=== PATIENT | male | born 1980 | race Hispanic/Latino ===

== ENCOUNTER 2018-01-22 18:50 | Inpatient (IN) | payer OTHER ==
[~2018-01-22] VITALS: Ht 167.6 cm; Wt 98.8 kg
[2018-01-22] MEDS ORDERED: ONDANSETRON HCL 4 MG/2 ML VIAL ONE (19:48)
[2018-01-22] MEDS ORDERED: MORPHINE SULFATE 4 MG/1ML SYG ONE (19:49)
[2018-01-22 20:17] LABS: BASOPHILS % (AUTO) 0.1 % (0.0-5.0); HEMATOCRIT 42.8 % (42-54); LYMPHOCYTES % (AUTO) 5.8 % (21.0-51.0); MEAN CORPUSCULAR HEMOGLOBIN 29.7 pg (27.0-33.0); MEAN CORPUSCULAR HGB CONC 34.2 g/dL (32.0-36.0); MEAN CORPUSCULAR VOLUME 86.7 fL (79-99); MONOCYTES % (AUTO) 5.9 % (3.0-13.0); NEUTROPHILS % (AUTO) 88.2 % (40.0-77.0); PLATELET COUNT (AUTO) 258 K/uL (130-400); RED BLOOD CELL COUNT(AUTO) 4.94 MIL/uL (4.50-6.20); RED CELL DISTRIBUTION WIDTH 13.4 % (11.0-15.5); WHITE BLOOD COUNT (AUTO) 22.3 K/uL (4.8-10.8)
[2018-01-22 20:22] LABS: CREATININE 1.1 mg/dL (0.5-1.5); POTASSIUM 4.1 mmol/L (3.5-5.1)
[2018-01-22 20:26] LABS: ALBUMIN 4.2 g/dL (3.5-5.0); BILIRUBIN,TOTAL 0.7 mg/dL (0.2-1.0); TOTAL PROTEIN, SERUM 8.3 g/dL (6.0-8.3)
[2018-01-22] MEDS ORDERED: HYDROMORPHONE HCL 2 MG/ML VIAL ONE (20:55)
[2018-01-22] MEDS ORDERED: CEFTAZIDIME PENTAHYDRATE 1 GM/VIAL IVP SCH (21:00)
[2018-01-22 21:35] VITALS: BP 126/77
[2018-01-22] MEDS ORDERED: ONDANSETRON HCL 4 MG/2 ML VIAL IVP PRN (22:30)
[2018-01-22 23:15] VITALS: BP 126/72
[2018-01-22] MEDS: LACTATED RINGERS 1000ML 1,000 ML IV SCH (23:25)
[2018-01-22] MEDS: METRONIDAZOLE 500MG/100ML BAG 100 ML IVPB SCH (23:25)
[2018-01-23 03:25] VITALS: BP 151/66
[2018-01-23] MEDS ORDERED: MEPERIDINE HCL/PF 25 MG/0.5 ML AMPUL ONE ×5 (04:44→20:14)
[2018-01-23] MEDS: CEFTAZIDIME PENTAHYDRATE 1 GM/VIAL IVP SCH ×3 (04:48→20:21)
[2018-01-23] MEDS: METRONIDAZOLE 500MG/100ML BAG 100 ML IVPB SCH ×4 (04:48→22:05)
[2018-01-23] MEDS: MEPERIDINE-PF 25 MG/ML SYG IV PRN ×3 (04:52→20:23)
[2018-01-23] MEDS ORDERED: CEFTAZIDIME 1GM+NS 50ML 50 ML IV SCH (05:00)
[2018-01-23 07:30] VITALS: BP 110/62
[2018-01-23 11:00] VITALS: BP 120/66
[2018-01-23] MEDS: LACTATED RINGERS 1000ML 1,000 ML IV SCH ×3 (12:08→22:05)
[2018-01-23 16:00] VITALS: BP 119/70
[2018-01-23 20:05] VITALS: BP 124/75
[2018-01-23 23:40] VITALS: BP 108/61
[2018-01-24] MEDS: HYDROMORPHONE HCL 0.5 MG/0.5 ML ML IVP PRN ×4 (01:35→17:03)
[2018-01-24 04:21] VITALS: BP 112/64
[2018-01-24] MEDS: CEFTAZIDIME PENTAHYDRATE 1 GM/VIAL IVP SCH ×3 (05:30→20:44)
[2018-01-24] MEDS: METRONIDAZOLE 500MG/100ML BAG 100 ML IVPB SCH ×4 (05:31→23:13)
[2018-01-24 08:00] VITALS: BP 117/67
[2018-01-24] MEDS: LACTATED RINGERS 1000ML 1,000 ML IV SCH ×2 (09:40→20:45)
[2018-01-24 11:00] VITALS: BP_SYST 120; BP_SYST 128; BP_DIAS 67; BP_DIAS 69
[2018-01-24 16:00] VITALS: BP 125/73
[2018-01-24 20:00] VITALS: BP 122/73
[2018-01-24] MEDS: MORPHINE SULFATE 2 MG/ML 1ML SYG IVP PRN ×2 (20:46→23:14)
[2018-01-25] VITALS: BP 131/75
[2018-01-25] MEDS: MORPHINE SULFATE 2 MG/ML 1ML SYG IVP PRN ×8 (03:01→22:42)
[2018-01-25 04:00] VITALS: BP 111/68
[2018-01-25] MEDS: LACTATED RINGERS 1000ML 1,000 ML IV SCH ×2 (07:07→14:43)
[2018-01-25] MEDS: METRONIDAZOLE 500MG/100ML BAG 100 ML IVPB SCH ×3 (07:07→17:36)
[2018-01-25] MEDS: CEFTAZIDIME PENTAHYDRATE 1 GM/VIAL IVP SCH ×3 (07:08→20:09)
[2018-01-25 08:00] VITALS: BP 127/75
[2018-01-25 11:00] VITALS: BP 121/68
[2018-01-25 16:00] VITALS: BP 127/78
[2018-01-25 20:00] VITALS: BP 119/78
[2018-01-25 21:10] LABS: MEAN CORPUSCULAR HEMOGLOBIN 30.1 pg (27.0-33.0); MEAN CORPUSCULAR HGB CONC 34.9 g/dL (32.0-36.0); MEAN CORPUSCULAR VOLUME 86.1 fL (79-99); NUCLEATED RED BLOOD CELLS 0.1 % (0.0-0.19); PLATELET COUNT (AUTO) 253 K/uL (130-400); RED BLOOD CELL COUNT(AUTO) 4.65 MIL/uL (4.50-6.20); RED CELL DISTRIBUTION WIDTH 13.1 % (11.0-15.5); WHITE BLOOD COUNT (AUTO) 11.3 K/uL (4.8-10.8)
[2018-01-26] VITALS: BP 129/73
[2018-01-26] MEDS: METRONIDAZOLE 500MG/100ML BAG 100 ML IVPB SCH ×5 (00:01→22:17)
[2018-01-26] MEDS: LACTATED RINGERS 1000ML 1,000 ML IV SCH ×3 (00:07→18:23)
[2018-01-26] MEDS: MORPHINE SULFATE 2 MG/ML 1ML SYG IVP PRN ×4 (00:57→11:01)
[2018-01-26 04:00] VITALS: BP 126/79
[2018-01-26] MEDS: CEFTAZIDIME PENTAHYDRATE 1 GM/VIAL IVP SCH ×3 (05:00→22:17)
[2018-01-26 08:00] VITALS: BP 118/70
[2018-01-26 12:00] VITALS: BP 130/46
[2018-01-26] MEDS ORDERED: PHARMACY COMMUNICATION MISC SCH (13:15)
[2018-01-26] MEDS: CALDOLOR 800MG+NS 250ML 250 ML IV SCH ×2 (14:27→22:17)
[2018-01-26 16:00] VITALS: BP 124/67
[2018-01-26] MEDS ORDERED: PANTOPRAZOLE 40 MG/VIAL IVP SCH (17:00)
[2018-01-26 20:00] VITALS: BP 115/68
[2018-01-26] MEDS ORDERED: MEPERIDINE-PF 25 MG/ML SYG IVP PRN (20:45)
[2018-01-26] MEDS ORDERED: FAMOTIDINE/PF 20 MG/2 ML VIAL IV SCH (21:00)
[2018-01-26] MEDS: PANTOPRAZOLE 40 MG/VIAL IVP SCH (22:16)
[2018-01-27] VITALS: BP 139/80
[2018-01-27 04:00] VITALS: BP 142/79
[2018-01-27] MEDS: CEFTAZIDIME PENTAHYDRATE 1 GM/VIAL IVP SCH ×2 (05:09→13:31)
[2018-01-27] MEDS: LACTATED RINGERS 1000ML 1,000 ML IV SCH ×2 (05:09→13:45)
[2018-01-27] MEDS: CALDOLOR 800MG+NS 250ML 250 ML IV SCH (05:09)
[2018-01-27] MEDS: METRONIDAZOLE 500MG/100ML BAG 100 ML IVPB SCH ×3 (05:09→18:05)
[2018-01-27 08:00] VITALS: BP 141/84
[2018-01-27] MEDS: PANTOPRAZOLE 40 MG/VIAL IVP SCH (09:50)
[2018-01-27 11:00] VITALS: BP 119/78
[2018-01-27 16:00] VITALS: BP 114/72
[2018-03-10] MEDS ORDERED: LINA145C PO (09:05)
== END 2018-01-27 20:05 | disposition home or self-care (01) | DRG 392 ==
LOC: EDH 18:50 → EDHIP 20:45 → 3AH 21:25
PROVIDERS: ADMIT Surgery; ATTEND Surgery
DX: K57.92 Diverticulitis of intestine, part unspecified, without perforation or abscess without bleeding (principal); M65.4 Radial styloid tenosynovitis [de Quervain]; M67.40 Ganglion, unspecified site; M65.9 Synovitis and tenosynovitis, unspecified
CPT/HCPCS: 36415; 73100; 74176; 80053; 85025; 85027; A4218; C9113; J0713; J1170; J1741; J2175; J2270; J2405; J3490; J7120

== ENCOUNTER 2018-03-11 05:54 | Day surgery (SDC) | payer OTHER ==
[~2018-03-11] VITALS: Ht 167.6 cm; Wt 96.1 kg
[~2018-03-11 05:54] MED LIST: LINA145C PO
[2018-03-11 06:16] VITALS: BP 118/70
[2018-03-11] MEDS ORDERED: SODIUM CHLORIDE 0.9% 1000ML 1,000 ML IV ONE ×2 (06:28→06:30)
[2018-03-11] MEDS ORDERED: GLYCOPYRROLATE 0.2 MG/ML 5 ML VIAL ONE (07:08)
[2018-03-11] MEDS ORDERED: PHENYLEPHRINE HCL 10 MG/ML 1ML VIAL IV ONE (07:08)
[2018-03-11] MEDS ORDERED: SUCCINYLCHOLINE CHLORIDE 20 MG/ML 10 ML VIAL ONE (07:08)
[2018-03-11] MEDS ORDERED: LIDOCAINE HCL 2% 20ML ONE (07:08)
[2018-03-11] MEDS ORDERED: PROPOFOL 1000 MG/100 ML 100 ML IV ONE (07:08)
== END 2018-03-11 07:57 | disposition home or self-care (01) ==
LOC: DAH 05:54 → ENDO 05:54
PROVIDERS: ATTEND Internal Medicine
DX: K63.5 Polyp of colon (principal); K57.30 Diverticulosis of large intestine without perforation or abscess without bleeding; K57.32 Diverticulitis of large intestine without perforation or abscess without bleeding; Z98.890 Other specified postprocedural states; Z79.899 Other long term (current) drug therapy
CPT/HCPCS: 45380; 88305; A4606; J0330; J2370; J2704; J3490 ×2; J7030 ×2

== ENCOUNTER → 2019-09-08 | Outpatient (CLI) | payer OTHER | END | disposition home or self-care (01) | LOC: RAH 09:18 | PROVIDERS: ATTEND Internal Medicine Gastroenterology | DX: K82.4 Cholesterolosis of gallbladder (principal) | CPT/HCPCS: 76700 ==

== ENCOUNTER → 2020-05-09 | Outpatient (CLI) | payer OTHER | END | disposition home or self-care (01) | LOC: RAH 08:02 | PROVIDERS: ATTEND Orthopaedic Surgery | DX: S83.511A Sprain of anterior cruciate ligament of right knee, initial encounter (principal); M17.11 Unilateral primary osteoarthritis, right knee; X58.XXXA Exposure to other specified factors, initial encounter; Y93.89 Activity, other specified; Y92.89 Other specified places as the place of occurrence of the external cause; Y99.8 Other external cause status | CPT/HCPCS: 73721 ==

== ENCOUNTER → 2022-05-27 | Outpatient (CLI) | payer OTHER ==
[~2022-05-27] MED LIST changes: +ALLO100T PO; +IOHEXOL 350 MG/ML 100ML INFUS..BTL IV ONE; -LINA145C PO
== END | disposition home or self-care (01) ==
LOC: RAH 09:30
PROVIDERS: ATTEND Internal Medicine Infectious Disease
DX: K57.92 Diverticulitis of intestine, part unspecified, without perforation or abscess without bleeding (principal); M86.8X8 Other osteomyelitis, other site; S36.593A Other injury of sigmoid colon, initial encounter; X58.XXXA Exposure to other specified factors, initial encounter; Y93.89 Activity, other specified; Y92.89 Other specified places as the place of occurrence of the external cause; Y99.8 Other external cause status; M89.38 Hypertrophy of bone, other site
CPT/HCPCS: 74177; Q9967

== ENCOUNTER 2022-06-13 18:47 | Inpatient (IN) | payer OTHER ==
[~2022-06-13] VITALS: Ht 167.6 cm; Wt 90.0 kg
[~2022-06-13 18:47] MED LIST changes: -IOHEXOL 350 MG/ML 100ML INFUS..BTL IV ONE
[2022-06-13] MEDS ORDERED: MORPHINE 4 MG SYG ONE (19:13)
[2022-06-13] MEDS ORDERED: ONDANSETRON 4MG INJ ONE (19:13)
[2022-06-13 19:16] LABS: BASOPHILS % (AUTO) 0.2 % (0.0-5.0); EOSINOPHILS % (AUTO) 0.1 % (0.0-8.0); HEMATOCRIT 46.6 % (42-54); LYMPHOCYTES % (AUTO) 6.5 % (21.0-51.0); MEAN CORPUSCULAR HGB CONC 33.5 g/dL (32.0-36.0); MEAN CORPUSCULAR VOLUME 83.7 fL (79-99); MONOCYTES % (AUTO) 6.2 % (3.0-13.0); NEUTROPHILS % (AUTO) 86.4 % (40.0-77.0); PLATELET COUNT (AUTO) 321 K/uL (130-400); RED BLOOD CELL COUNT(AUTO) 5.57 MIL/uL (4.50-6.20); RED CELL DISTRIBUTION WIDTH 13.7 % (11.0-15.5); WHITE BLOOD COUNT (AUTO) 23.4 K/uL (4.8-10.8)
[2022-06-13] MEDS ORDERED: METRONIDAZOLE 500MG/100ML BAG 100 ML IVPB SCH (19:30)
[2022-06-13] MEDS ORDERED: ONDANSETRON 4MG INJ IV ONE (19:30)
[2022-06-13] MEDS ORDERED: MORPHINE 4 MG SYG IVP ONE (19:30)
[2022-06-13] MEDS ORDERED: ZOSYN 3.375GM +NS 50ML IV SCH (19:30)
[2022-06-13 19:43] LABS: ALANINE AMINOTRANSFERASE 53 U/L (12-78); ALBUMIN 3.6 g/dL (3.5-5.0); ASPARTATE AMINOTRANSFERASE 21 U/L (10-37); CARBON DIOXIDE 27 mmol/L (21-32); CHLORIDE 97 mmol/L (101-111); CREATININE 1.3 mg/dL (0.5-1.5); GLOMERULAR FILTR. RATE CALC 64 mL/min (>60); GLUCOSE,RANDOM 133 mg/dL (70-105); LIPASE 237 U/L (114-286); POTASSIUM 4.6 mmol/L (3.5-5.1); SODIUM SERUM 135 mmol/L (136-145); TOTAL PROTEIN, SERUM 8.9 g/dL (6.0-8.3); UREA NITROGEN, BLOOD 15 mg/dL (7-18)
[2022-06-13] MEDS ORDERED: IOHEXOL 350 MG/ML 100ML INFUS..BTL IV ONE (19:53)
[2022-06-13 20:06] LABS: APPEARANCE,URINE CLOUDY (CLEAR); BILIRUBIN,URINE MODERATE (NEGATIVE); COLOR,URINE ORANGE (YELLOW); GLUCOSE, URINE (UA) NEGATIVE (NEGATIVE); KETONES,URINE 15 mg/dL (NEGATIVE); LEUKOCYTE ESTERASE ,URINE NEGATIVE (NEGATIVE); NITRATE,URINE POSITIVE (NEGATIVE); OCCULT BLOOD,URINE MODERATE (NEGATIVE); PROTEIN,URINE 100 mg/dL (NEGATIVE)
[2022-06-13 20:24] LABS: BACTERIA,URINE Few /HPF (None Seen); MUCUS,URINE Moderate LPF (None Seen); SQUAMOUS EPITHELIAL CELL,UR Few /HPF (0-2)
[2022-06-13 22:10] VITALS: BP 110/71
[2022-06-13 23:21] VITALS: BP 111/69
[2022-06-13] MEDS ORDERED: ACETAMINOPHEN 325 MG TAB PO PRN ×2 (23:30)
[2022-06-13] MEDS ORDERED: 0.9%NACL 1000ML 1,000 ML IV SCH (23:30)
[2022-06-13] MEDS: ONDANSETRON 4MG INJ IV PRN (23:49)
[2022-06-13] MEDS: MORPHINE 2 MG SYG IV PRN (23:50)
[2022-06-14] MEDS: HYDROMORPHONE 1 MG INJ IV PRN ×3 (03:08→20:47)
[2022-06-14 03:38] VITALS: BP 103/56
[2022-06-14 04:50] LABS: ALANINE AMINOTRANSFERASE 35 U/L (12-78); ALBUMIN 2.7 g/dL (3.5-5.0); ASPARTATE AMINOTRANSFERASE 6 U/L (10-37); CARBON DIOXIDE 27 mmol/L (21-32); CHLORIDE 101 mmol/L (101-111); CREATININE 1.2 mg/dL (0.5-1.5); GLOMERULAR FILTR. RATE CALC 70 mL/min (>60); GLUCOSE,RANDOM 117 mg/dL (70-105); POTASSIUM 4.5 mmol/L (3.5-5.1); SODIUM SERUM 135 mmol/L (136-145); TOTAL PROTEIN, SERUM 7.1 g/dL (6.0-8.3); UREA NITROGEN, BLOOD 11 mg/dL (7-18)
[2022-06-14] MEDS ORDERED: ZOSYN 3.375GM+NS 50ML 50 ML IV SCH (05:00)
[2022-06-14 06:15] LABS: BASOPHILS % (AUTO) 0.2 % (0.0-5.0); EOSINOPHILS % (AUTO) 0.1 % (0.0-8.0); HEMATOCRIT 36.9 % (42-54); MEAN CORPUSCULAR HEMOGLOBIN 29.3 pg (27.0-33.0); MEAN CORPUSCULAR HGB CONC 34.4 g/dL (32.0-36.0); MONOCYTES % (AUTO) 7.8 % (3.0-13.0); NEUTROPHILS % (AUTO) 83.3 % (40.0-77.0); PLATELET COUNT (AUTO) 272 K/uL (130-400); RED BLOOD CELL COUNT(AUTO) 4.34 MIL/uL (4.50-6.20); WHITE BLOOD COUNT (AUTO) 20.3 K/uL (4.8-10.8)
[2022-06-14] MEDS: MORPHINE 2 MG SYG IV PRN ×2 (06:32→15:51)
[2022-06-14 07:32] VITALS: BP 103/58
[2022-06-14 07:46] LABS: ERYTHROCYTE SEDIMENTATION RATE 72 MM/HR (0-15)
[2022-06-14] MEDS: FAMOTIDINE 20MG VIAL IV SCH ×2 (08:26→20:46)
[2022-06-14] MEDS ORDERED: METRONIDAZOLE 500 MG TABLET PO SCH (09:00)
[2022-06-14] MEDS ORDERED: VANCOMYCIN PROTOCOL PER PHARMACY IV SCH (10:00)
[2022-06-14] MEDS: LACTATED RINGERS 1000ML 1,000 ML IV SCH ×2 (10:52→22:40)
[2022-06-14] MEDS: MEROPENEM 1 GM VIAL IVP SCH ×2 (10:52→17:00)
[2022-06-14] MEDS ORDERED: VANCOMYCIN 1.5 GM/250 ML BAG 250 ML IV SCH (11:00)
[2022-06-14 11:13] VITALS: BP 108/67
[2022-06-14] MEDS ORDERED: FLUCONAZOLE 200 MG/NS 100 ML 100 ML IV SCH (13:00)
[2022-06-14] MEDS ORDERED: METRONIDAZOLE 500MG/100ML BAG 100 ML IVPB SCH (14:00)
[2022-06-14 15:16] VITALS: BP 105/65
[2022-06-14 20:12] VITALS: BP 117/69
[2022-06-14] MEDS: VANCOMYCIN 1G/250ML KIT 250 ML IV SCH (20:46)
[2022-06-14 23:46] VITALS: BP 115/67
[2022-06-15] MEDS: MEROPENEM 1 GM VIAL IVP SCH ×3 (01:08→18:18)
[2022-06-15] MEDS: MORPHINE 2 MG SYG IV PRN ×2 (01:09→16:16)
[2022-06-15 03:28] VITALS: BP 118/64
[2022-06-15 04:47] LABS: BASOPHILS % (AUTO) 0.1 % (0.0-5.0); EOSINOPHILS % (AUTO) 1.6 % (0.0-8.0); HEMATOCRIT 33.2 % (42-54); LYMPHOCYTES % (AUTO) 11.1 % (21.0-51.0); MEAN CORPUSCULAR HEMOGLOBIN 28.2 pg (27.0-33.0); MEAN CORPUSCULAR HGB CONC 33.7 g/dL (32.0-36.0); MEAN CORPUSCULAR VOLUME 83.6 fL (79-99); MONOCYTES % (AUTO) 8.1 % (3.0-13.0); NEUTROPHILS % (AUTO) 78.6 % (40.0-77.0); PLATELET COUNT (AUTO) 267 K/uL (130-400); RED BLOOD CELL COUNT(AUTO) 3.97 MIL/uL (4.50-6.20); RED CELL DISTRIBUTION WIDTH 13.8 % (11.0-15.5)
[2022-06-15] MEDS: HYDROMORPHONE 1 MG INJ IV PRN ×3 (04:47→20:44)
[2022-06-15 04:59] LABS: CREATININE 0.9 mg/dL (0.5-1.5); MAGNESIUM 1.7 mg/dL (1.80-2.40); POTASSIUM 3.8 mmol/L (3.5-5.1)
[2022-06-15 05:01] LABS: INR 1.1 (0.85-1.15); PROTHROMBIN TIME 11.9 SEC (9.6-11.6)
[2022-06-15 05:02] LABS: PARTIAL THROMBOPLASTIN TIME 36.2 SEC (26.3-35.5)
[2022-06-15 08:00] VITALS: BP 112/65
[2022-06-15] MEDS: FAMOTIDINE 20MG VIAL IV SCH ×2 (08:58→20:43)
[2022-06-15] MEDS: FLUCONAZOLE 200 MG/NS 100 ML 100 ML IV SCH (08:58)
[2022-06-15] MEDS: VANCOMYCIN 1G/250ML KIT 250 ML IV SCH ×2 (09:49→20:43)
[2022-06-15 12:00] VITALS: BP 122/74
[2022-06-15 16:00] VITALS: BP 117/69
[2022-06-15 19:12] VITALS: BP 115/70
[2022-06-15] MEDS: ONDANSETRON 4MG INJ IV PRN (20:43)
[2022-06-15] MEDS: LACTATED RINGERS 1000ML 1,000 ML IV SCH (22:32)
[2022-06-16 00:12] VITALS: BP 119/67
[2022-06-16] MEDS: MEROPENEM 1 GM VIAL IVP SCH ×3 (01:03→17:10)
[2022-06-16] MEDS: MORPHINE 2 MG SYG IV PRN ×2 (01:09→05:50)
[2022-06-16 01:44] VITALS: BP 129/74
[2022-06-16 03:21] VITALS: BP 115/67
[2022-06-16 06:51] LABS: BASOPHILS % (AUTO) 0.1 % (0.0-5.0); EOSINOPHILS % (AUTO) 1.2 % (0.0-8.0); HEMATOCRIT 33.4 % (42-54); LYMPHOCYTES % (AUTO) 9.9 % (21.0-51.0); MEAN CORPUSCULAR HEMOGLOBIN 28.1 pg (27.0-33.0); MEAN CORPUSCULAR HGB CONC 33.8 g/dL (32.0-36.0); MEAN CORPUSCULAR VOLUME 83.1 fL (79-99); MONOCYTES % (AUTO) 7.2 % (3.0-13.0); NEUTROPHILS % (AUTO) 81.2 % (40.0-77.0); PLATELET COUNT (AUTO) 293 K/uL (130-400); RED BLOOD CELL COUNT(AUTO) 4.02 MIL/uL (4.50-6.20); RED CELL DISTRIBUTION WIDTH 13.4 % (11.0-15.5); WHITE BLOOD COUNT (AUTO) 10.9 K/uL (4.8-10.8)
[2022-06-16 07:04] LABS: CREATININE 0.7 mg/dL (0.5-1.5); POTASSIUM 3.6 mmol/L (3.5-5.1)
[2022-06-16 08:22] VITALS: BP 116/69
[2022-06-16] MEDS: FAMOTIDINE 20MG VIAL IV SCH ×2 (09:49→21:00)
[2022-06-16] MEDS: FLUCONAZOLE 200 MG/NS 100 ML 100 ML IV SCH (09:49)
[2022-06-16] MEDS: VANCOMYCIN 1G/250ML KIT 250 ML IV SCH ×2 (09:49→21:00)
[2022-06-16] MEDS: LACTATED RINGERS 1000ML 1,000 ML IV SCH ×3 (09:49→23:00)
[2022-06-16] MEDS: HYDROMORPHONE 1 MG INJ IV PRN ×2 (09:50→14:39)
[2022-06-16 12:00] VITALS: BP 115/80
[2022-06-16 16:00] VITALS: BP 120/78
[2022-06-16] MEDS ORDERED: POTASSIUM CHLORIDE 20MEQ/100ML 100 ML IV PRN (16:00)
[2022-06-16] MEDS ORDERED: PROPOFOL 10 MG/ML 20ML VIAL IV ONE (19:30)
[2022-06-16] MEDS ORDERED: MIDAZOLAM HCL 1 MG/ML 2ML VIAL ONE (19:30)
[2022-06-16] MEDS ORDERED: LIDOCAINE PF 100MG/5ML (2%) SYRINGE 5ML ONE (19:30)
[2022-06-16] MEDS ORDERED: ROCURONIUM 10MG/1ML SYR 10 MG/ML ML ONE ×3 (19:30→22:27)
[2022-06-16] MEDS ORDERED: FENTANYL CITRATE PF 50 MCG/1 ML 5ML AMP IV ONE ×2 (19:32→21:36)
[2022-06-16] MEDS ORDERED: ONDANSETRON 4MG INJ ONE (19:33)
[2022-06-16] MEDS ORDERED: GLYCOPYRROLATE 1 MG/5 ML SYRINGE ONE ×2 (21:16→23:48)
[2022-06-16] MEDS ORDERED: MEPERIDINE-PF 25 MG/ML SYG ONE (21:30)
[2022-06-16] MEDS ORDERED: DEXAMETHASONE SOD PHOSPHATE 4 MG/ML 1ML VIAL ONE (21:36)
[2022-06-16] MEDS ORDERED: OXYMETAZOLINE HCL SPRAY 15 ML BOTTLE ONE (22:00)
[2022-06-16] MEDS ORDERED: LIDOCAINE HCL 2% JELLY 5 ML ONE (22:06)
[2022-06-16] MEDS ORDERED: NEOSTIGMINE 5MG/5ML SYR IV ONE (23:48)
[2022-06-16] MEDS ORDERED: METOCLOPRAMIDE 10 MG/2 ML VIAL ONE (23:49)
[2022-06-16] MEDS ORDERED: KETOROLAC 30MG VIAL (30MG/ML) ONE (23:52)
[2022-06-16] MEDS ORDERED: FENTANYL CITRATE PF 50 MCG/1 ML 2ML VIAL ONE (23:54)
[2022-06-17] VITALS (27 sets, daily range): BP systolic 121–145; BP diastolic 65–85
[2022-06-17] MEDS ORDERED: KETAMINE 50MG/ML SYRINGE 50 MG/ML DISP.SYRIN IV ONE (00:11)
[2022-06-17] MEDS: LACTATED RINGERS 1000ML 1,000 ML IV SCH ×3 (00:14→07:30)
[2022-06-17] MEDS ORDERED: 0.9%NACL 10ML VIAL ONE (02:29)
[2022-06-17] MEDS: MEROPENEM 1 GM VIAL IVP SCH ×3 (02:31→17:08)
[2022-06-17] MEDS: TRAMADOL HCL 50 MG TABLET PO SCH ×4 (02:58→22:49)
[2022-06-17] MEDS ORDERED: PHARMACY COMMUNICATION MISC SCH (03:00)
[2022-06-17] MEDS: HYDROMORPHONE 1 MG INJ IV PRN ×4 (03:38→21:03)
[2022-06-17 06:23] LABS: BASOPHILS % (AUTO) 0.2 % (0.0-5.0); HEMATOCRIT 34.7 % (42-54); LYMPHOCYTES % (AUTO) 3.1 % (21.0-51.0); MEAN CORPUSCULAR HEMOGLOBIN 28.5 pg (27.0-33.0); MEAN CORPUSCULAR HGB CONC 34.3 g/dL (32.0-36.0); MONOCYTES % (AUTO) 2.7 % (3.0-13.0); NEUTROPHILS % (AUTO) 93.5 % (40.0-77.0); PLATELET COUNT (AUTO) 349 K/uL (130-400); RED BLOOD CELL COUNT(AUTO) 4.18 MIL/uL (4.50-6.20); RED CELL DISTRIBUTION WIDTH 13.3 % (11.0-15.5); WHITE BLOOD COUNT (AUTO) 12.8 K/uL (4.8-10.8)
[2022-06-17 06:37] LABS: CREATININE 0.8 mg/dL (0.5-1.5); POTASSIUM 4.3 mmol/L (3.5-5.1)
[2022-06-17] MEDS: GABAPENTIN 300 MG CAPSULE PO SCH ×3 (07:20→20:56)
[2022-06-17] MEDS: FLUCONAZOLE 200 MG/NS 100 ML 100 ML IV SCH (07:47)
[2022-06-17] MEDS: FAMOTIDINE 20MG VIAL IV SCH ×2 (07:47→20:56)
[2022-06-17] MEDS: VANCOMYCIN 1.25 GM/250 ML BAG 250 ML IV SCH ×2 (10:35→20:55)
[2022-06-17] MEDS: MORPHINE 4 MG SYG IVP PRN ×2 (10:40→17:04)
[2022-06-18] VITALS: BP 134/78
[2022-06-18] MEDS: TRAMADOL HCL 50 MG TABLET PO SCH ×4 (03:00→21:00)
[2022-06-18] MEDS: LACTATED RINGERS 1000ML 1,000 ML IV SCH ×2 (03:54→18:24)
[2022-06-18] MEDS: MEROPENEM 1 GM VIAL IVP SCH ×3 (03:54→18:13)
[2022-06-18] MEDS: HYDROMORPHONE 1 MG INJ IV PRN ×2 (03:54→11:11)
[2022-06-18 04:00] VITALS: BP 116/64
[2022-06-18 06:49] LABS: BASOPHILS % (AUTO) 0.1 % (0.0-5.0); EOSINOPHILS % (AUTO) 0.2 % (0.0-8.0); HEMATOCRIT 31.5 % (42-54); LYMPHOCYTES % (AUTO) 11.3 % (21.0-51.0); MEAN CORPUSCULAR HEMOGLOBIN 28.2 pg (27.0-33.0); MEAN CORPUSCULAR VOLUME 82.9 fL (79-99); MONOCYTES % (AUTO) 9.7 % (3.0-13.0); NEUTROPHILS % (AUTO) 78.3 % (40.0-77.0); PLATELET COUNT (AUTO) 299 K/uL (130-400); RED CELL DISTRIBUTION WIDTH 13.5 % (11.0-15.5); WHITE BLOOD COUNT (AUTO) 9.7 K/uL (4.8-10.8)
[2022-06-18 07:00] LABS: CREATININE 0.8 mg/dL (0.5-1.5); MAGNESIUM 1.6 mg/dL (1.80-2.40)
[2022-06-18 08:01] VITALS: BP 118/75
[2022-06-18] MEDS: GABAPENTIN 300 MG CAPSULE PO SCH ×3 (08:20→20:52)
[2022-06-18] MEDS: VANCOMYCIN 1.25 GM/250 ML BAG 250 ML IV SCH (08:21)
[2022-06-18] MEDS: FAMOTIDINE 20MG VIAL IV SCH ×2 (08:21→20:51)
[2022-06-18] MEDS: FLUCONAZOLE 200 MG/NS 100 ML 100 ML IV SCH (08:21)
[2022-06-18 11:18] VITALS: BP 112/74
[2022-06-18 16:00] VITALS: BP 111/71
[2022-06-18 19:46] VITALS: BP 118/74
[2022-06-18] MEDS: VANCOMYCIN 1.5 GM/250 ML BAG 250 ML IV SCH (21:00)
[2022-06-18] MEDS ORDERED: COMPOUND IV REFRIGERATED 1 EACH IVSOLN MISC PRN (21:00)
[2022-06-19 00:12] VITALS: BP 114/72
[2022-06-19] MEDS: TRAMADOL HCL 50 MG TABLET PO SCH ×6 (03:00→23:06)
[2022-06-19] MEDS: MEROPENEM 1 GM VIAL IVP SCH ×3 (03:11→16:52)
[2022-06-19 04:00] VITALS: BP 129/74
[2022-06-19 06:46] VITALS: BP 121/68
[2022-06-19 07:02] LABS: BASOPHILS % (AUTO) 0.1 % (0.0-5.0); LYMPHOCYTES % (AUTO) 23.8 % (21.0-51.0); MEAN CORPUSCULAR HEMOGLOBIN 28.1 pg (27.0-33.0); MEAN CORPUSCULAR HGB CONC 33.2 g/dL (32.0-36.0); MEAN CORPUSCULAR VOLUME 84.5 fL (79-99); MONOCYTES % (AUTO) 11.6 % (3.0-13.0); NEUTROPHILS % (AUTO) 61.8 % (40.0-77.0); PLATELET COUNT (AUTO) 307 K/uL (130-400); RED BLOOD CELL COUNT(AUTO) 3.67 MIL/uL (4.50-6.20); RED CELL DISTRIBUTION WIDTH 13.7 % (11.0-15.5); WHITE BLOOD COUNT (AUTO) 6.9 K/uL (4.8-10.8)
[2022-06-19 07:14] LABS: CREATININE 0.8 mg/dL (0.5-1.5); MAGNESIUM 1.6 mg/dL (1.80-2.40); POTASSIUM 3.8 mmol/L (3.5-5.1)
[2022-06-19] MEDS: GABAPENTIN 300 MG CAPSULE PO SCH ×3 (07:39→21:28)
[2022-06-19] MEDS: FAMOTIDINE 20MG VIAL IV SCH ×2 (07:40→21:28)
[2022-06-19] MEDS: LACTATED RINGERS 1000ML 1,000 ML IV SCH (07:40)
[2022-06-19] MEDS: VANCOMYCIN 1.5 GM/250 ML BAG 250 ML IV SCH ×2 (07:40→21:28)
[2022-06-19] MEDS: FLUCONAZOLE 200 MG/NS 100 ML 100 ML IV SCH (07:40)
[2022-06-19 12:00] VITALS: BP 99/62
[2022-06-19 16:00] VITALS: BP 118/74
[2022-06-19 19:21] VITALS: BP 111/75
[2022-06-20 00:18] VITALS: BP 116/74
[2022-06-20] MEDS: MEROPENEM 1 GM VIAL IVP SCH ×3 (02:20→18:22)
[2022-06-20 03:18] VITALS: BP 112/67
[2022-06-20] MEDS: TRAMADOL HCL 50 MG TABLET PO SCH ×4 (05:08→23:46)
[2022-06-20 07:54] LABS: HEMATOCRIT 33.4 % (42-54); MEAN CORPUSCULAR HEMOGLOBIN 28.3 pg (27.0-33.0); MEAN CORPUSCULAR HGB CONC 33.8 g/dL (32.0-36.0); MEAN CORPUSCULAR VOLUME 83.5 fL (79-99); RED CELL DISTRIBUTION WIDTH 13.3 % (11.0-15.5); WHITE BLOOD COUNT (AUTO) 6.9 K/uL (4.8-10.8)
[2022-06-20 08:00] VITALS: BP 111/75
[2022-06-20 08:13] LABS: ALBUMIN 2.3 g/dL (3.5-5.0); CREATININE 0.9 mg/dL (0.5-1.5); MAGNESIUM 1.7 mg/dL (1.80-2.40); POTASSIUM 4.6 mmol/L (3.5-5.1); TOTAL PROTEIN, SERUM 6.5 g/dL (6.0-8.3)
[2022-06-20] MEDS: FLUCONAZOLE 200 MG/NS 100 ML 100 ML IV SCH (09:40)
[2022-06-20] MEDS: GABAPENTIN 300 MG CAPSULE PO SCH ×3 (09:40→22:24)
[2022-06-20] MEDS: ENOXAPARIN SODIUM 30 MG/0.3 ML SQ SCH (09:40)
[2022-06-20] MEDS: FAMOTIDINE 20MG VIAL IV SCH ×2 (09:40→22:24)
[2022-06-20] MEDS: VANCOMYCIN 1.5 GM/250 ML BAG 250 ML IV SCH ×2 (09:50→22:31)
[2022-06-20] MEDS: DOCUSATE SODIUM 100 MG CAP PO SCH (11:49)
[2022-06-20 11:56] VITALS: BP 115/71
[2022-06-20 15:54] VITALS: BP 102/67
[2022-06-20 19:00] VITALS: BP 99/64
[2022-06-20] MEDS ORDERED: VANCOMYCIN 500MG+NS 100ML 100 ML IV ONE (22:27)
[2022-06-20] MEDS ORDERED: VANCOMYCIN 1G/250ML KIT 250 ML IV ONE (22:27)
[2022-06-20] MEDS ORDERED: 0.9% NACL 250ML 250 ML ONE (22:28)
[2022-06-21] VITALS: BP 113/77
[2022-06-21] MEDS: MEROPENEM 1 GM VIAL IVP SCH ×2 (02:56→10:27)
[2022-06-21 04:00] VITALS: BP 107/73
[2022-06-21] MEDS: TRAMADOL HCL 50 MG TABLET PO SCH ×4 (05:19→22:07)
[2022-06-21 08:00] VITALS: BP 117/79
[2022-06-21] MEDS: ENOXAPARIN SODIUM 30 MG/0.3 ML SQ SCH (10:28)
[2022-06-21] MEDS: GABAPENTIN 300 MG CAPSULE PO SCH ×3 (10:28→22:07)
[2022-06-21] MEDS ORDERED: MAGNESIUM 2GM PREMIX 50ML 50 ML IV SCH (10:30)
[2022-06-21] MEDS ORDERED: 0.9%NACL 1000ML 1,000 ML IV SCH (10:30)
[2022-06-21] MEDS: PSYLLIUM SEED 1 EACH PACKET PO SCH ×2 (10:37→22:08)
[2022-06-21] MEDS: FLUCONAZOLE 200 MG/NS 100 ML 100 ML IV SCH (10:37)
[2022-06-21] MEDS: DOCUSATE SODIUM 100 MG CAP PO SCH (11:02)
[2022-06-21] MEDS: VANCOMYCIN 1.5 GM/250 ML BAG 250 ML IV SCH (11:02)
[2022-06-21 11:32] VITALS: BP 106/76
[2022-06-21 16:00] VITALS: BP 107/47
[2022-06-21] MEDS: METRONIDAZOLE 500MG/100ML BAG 100 ML IVPB SCH ×2 (16:02→22:08)
[2022-06-21 20:55] VITALS: BP 107/79
[2022-06-21] MEDS: FAMOTIDINE 20MG TAB PO SCH (22:08)
[2022-06-22 00:47] VITALS: BP 110/76
[2022-06-22] MEDS: TRAMADOL HCL 50 MG TABLET PO SCH ×4 (03:00→21:22)
[2022-06-22 04:19] VITALS: BP 107/74
[2022-06-22 05:04] LABS: HEMATOCRIT 35.1 % (42-54); MEAN CORPUSCULAR HEMOGLOBIN 27.5 pg (27.0-33.0); MEAN CORPUSCULAR HGB CONC 32.5 g/dL (32.0-36.0); MEAN CORPUSCULAR VOLUME 84.6 fL (79-99); RED BLOOD CELL COUNT(AUTO) 4.15 MIL/uL (4.50-6.20); RED CELL DISTRIBUTION WIDTH 13.3 % (11.0-15.5); RETICULOCYTE % (AUTO) 1.9 % (0.42-2.23); WHITE BLOOD COUNT (AUTO) 5.4 K/uL (4.8-10.8)
[2022-06-22] MEDS: METRONIDAZOLE 500MG/100ML BAG 100 ML IVPB SCH ×3 (05:20→21:22)
[2022-06-22 05:24] LABS: % IRON SATURATION 15.5 % (30-44)
[2022-06-22 05:37] LABS: CREATININE 0.8 mg/dL (0.5-1.5); MAGNESIUM 1.8 mg/dL (1.80-2.40); PHOSPHORUS 3.7 mg/dL (2.5-4.9); POTASSIUM 4.5 mmol/L (3.5-5.1)
[2022-06-22 08:00] VITALS: BP 109/81
[2022-06-22] MEDS: DOCUSATE SODIUM 100 MG CAP PO SCH (10:30)
[2022-06-22] MEDS: LEVOFLOXACIN 750 MG/D5W 150 ML 150 ML IV SCH (11:58)
[2022-06-22 11:59] VITALS: BP 101/70
[2022-06-22] MEDS: GABAPENTIN 300 MG CAPSULE PO SCH ×3 (11:59→21:21)
[2022-06-22] MEDS: PSYLLIUM SEED 1 EACH PACKET PO SCH ×2 (11:59→21:21)
[2022-06-22] MEDS: FAMOTIDINE 20MG TAB PO SCH ×2 (11:59→21:21)
[2022-06-22] MEDS: ENOXAPARIN SODIUM 30 MG/0.3 ML SQ SCH (12:00)
[2022-06-22] MEDS: ALLOPURINOL 100 MG TABLET PO SCH (12:00)
[2022-06-22] MEDS ORDERED: ALLO100T PO (12:58)
[2022-06-22] MEDS ORDERED: LEVO500T90 PO (12:58)
[2022-06-22] MEDS ORDERED: GABA300C PO (12:58)
[2022-06-22] MEDS ORDERED: METR-172 PO (12:58)
[2022-06-22 16:00] VITALS: BP 110/76
[2022-06-22] MEDS ORDERED: BISACODYL 10 MG SUPP.RECT RC ONE (16:30)
[2022-06-22] MEDS: FLUCONAZOLE 200 MG/NS 100 ML 100 ML IV SCH (17:14)
[2022-06-22 20:00] VITALS: BP 98/61
[2022-06-23] VITALS: BP 106/73
[2022-06-23] MEDS: TRAMADOL HCL 50 MG TABLET PO SCH ×2 (03:00→09:00)
[2022-06-23 04:00] VITALS: BP 102/69
[2022-06-23] MEDS: METRONIDAZOLE 500MG/100ML BAG 100 ML IVPB SCH (06:16)
[2022-06-23 08:00] VITALS: BP 117/70
[2022-06-23] MEDS: FLUCONAZOLE 200 MG/NS 100 ML 100 ML IV SCH (09:29)
[2022-06-23] MEDS: LEVOFLOXACIN 750 MG/D5W 150 ML 150 ML IV SCH (09:29)
[2022-06-23] MEDS: GABAPENTIN 300 MG CAPSULE PO SCH (09:30)
[2022-06-23] MEDS: ALLOPURINOL 100 MG TABLET PO SCH (09:30)
[2022-06-23] MEDS: PSYLLIUM SEED 1 EACH PACKET PO SCH (09:30)
[2022-06-23] MEDS: FAMOTIDINE 20MG TAB PO SCH (09:30)
[2022-06-23] MEDS: ENOXAPARIN SODIUM 30 MG/0.3 ML SQ SCH (09:30)
[2022-06-23] MEDS: DOCUSATE SODIUM 100 MG CAP PO SCH (09:33)
[2022-06-23 12:00] VITALS: BP 121/71
== END 2022-06-23 14:45 | disposition home or self-care (01) | DRG 329 ==
LOC: EDH 18:47 → UNDOADMIN 18:48 → EDHIP 18:48 → 2DH 22:23 → 3CH 06-20 15:08
PROVIDERS: ADMIT Internal Medicine; ATTEND Internal Medicine
PROC: 0DBN0ZZ Excision of Sigmoid Colon, Open Approach (ICD-10-PCS; principal; 2022-06-16 20:04)
PROC: 0D980ZZ Drainage of Small Intestine, Open Approach (ICD-10-PCS; 2022-06-16 20:04)
DX: K57.20 Diverticulitis of large intestine with perforation and abscess without bleeding (principal); K65.0 Generalized (acute) peritonitis; E44.0 Moderate protein-calorie malnutrition; N39.0 Urinary tract infection, site not specified; E87.1 Hypo-osmolality and hyponatremia; K56.7 Ileus, unspecified; Z20.822 Contact with and (suspected) exposure to COVID-19; Z68.32 Body mass index [BMI] 32.0-32.9, adult; Z83.3 Family history of diabetes mellitus; Z82.49 Family history of ischemic heart disease and other diseases of the circulatory system; M10.9 Gout, unspecified; E87.8 Other disorders of electrolyte and fluid balance, not elsewhere classified
CPT/HCPCS: 36415; 74177; 80048; 80053; 80202; 81001; 82746; 83540; 83550; 83605; 83690; 83735; 84100; 84145; 84550; 85025; 85027; 85045; 85610; 85651; 85730; 86140; 86850; 86900; 86901; 87040; 87088; 87635; 97039; 99291; A4344; C9803; G0378; J1100; J1170; J1450; J1650; J1885; J1956; J2001; J2175; J2185; J2250; J2270; J2405; J2543; J2704; J2710; J2765; J3010; J3370; J3475; J3480; J3490; J7050; J7120; Q9967